=== PATIENT | male | born 1940 | race Caucasian/White ===

== ENCOUNTER → 2017-06-17 | Outpatient (CLI) | payer OTHER | LOC: FIMAGING 18:40 | PROVIDERS: ATTEND Internal Medicine | DX: M47.892 Other spondylosis, cervical region (principal); M50.30 Other cervical disc degeneration, unspecified cervical region; M12.88 Other specific arthropathies, not elsewhere classified, other specified site ==

== ENCOUNTER 2018-01-06 08:27 | Emergency (ER) | payer OTHER ==
--- NOTE | 2018-01-06 08:39 | CPEKG ---
Heart Rate: 69 RR Interval: 870 P-R Interval: 176 QRSD Interval: 94 QT Interval: 404 QTC Interval: 433 P Arapaho: 61 QRS [place]rapaho: 12 T Wave A[place]aho: 40 EKG Severity - NORMAL ECG - EKG Impression: SINUS RHYTHM Electronically Signed By: Jaspreet Fernandez 06-Jan-2018 08:51:16
--- NOTE | 2018-01-06 08:43 | EDPHY ---
H & P Stated Complaint: Chest pain Time Seen by Provider: 01/06/18 08:41 HPI/ROS: CHIEF COMPLAINT: Chest pain HISTORY OF PRESENT ILLNESS: The patient presents to the ED after he developed an episode of left-sided chest pain while eating breakfast today at 8 o'clock. The patient reports his pain is more last subsided. He reports he has had these symptoms sporadically on a q 2 month basis. Today the pain was slightly worse. The patient denies any pleuritic chest pain. He denies asymmetric calf pain or swelling. The patient reports he exercises frequently without chest pain or shortness of breath. The patient denies any symptoms of acid reflux. The patient does have a history of CABG in 1998. He believes his last stress test has been within the past 1-2 years and was normal. REVIEW OF SYSTEMS: A comprehensive 10 point review of systems is otherwise negative aside from elements mentioned in the history of present illness. Source: Patient Exam Limitations: No limitations - Personal History Current Tetanus/Diphtheria Vaccine: Unsure Current Tetanus Diphtheria and Acellular Pertussis (TDAP): Unsure - Medical/Surgical History Hx Asthma: No Hx Chronic Respiratory Disease: No Hx Diabetes: No Hx Cardiac Disease: Yes Hx Renal Disease: No Hx Cirrhosis: No Hx Alcoholism: No Hx HIV/AIDS: No Hx Splenectomy or Spleen Trauma: No Other PMH: CABG, - Social History Smoking Status: Never smoked - Physical Exam Exam: General Appearance: Alert, no distress Eyes: Pupils equal and round no pallor or injection ENT, Mouth: Mucous membranes moist Respiratory: There are no retractions, lungs are clear to auscultation Cardiovascular: Regular rate and rhythm Gastrointestinal: Abdomen is soft and nontender, no masses, bowel sounds normal Neurological: 5/5 strength all 4 extremities Skin: Warm and dry, no rashes, specifically no evidence of zoster Musculoskeletal: Neck is supple nontender Extremities: symmetrical, full range of motion, no clinical evidence of DVT Constitutional: Initial Vital Signs Temperature (C) 36.5 C 01/06/18 08:31 Heart Rate 73 01/06/18 08:31 Respiratory Rate 16 01/06/18 08:31 Blood Pressure 144/73 H 01/06/18 08:31 O2 Sat (%) 97 01/06/18 08:31 O2 Delivery Mode Room Air Allergies/Adverse Reactions: No Known Allergies Allergy (Unverified 01/06/18 08:31) Medical Decision Making - Diagnostics EKG Interpretation: EKG: Complete interpretation has been separately recorded in the [facility] archive. Summary impression: Sinus rhythm, rate 69, ST segment elevation or depression. Imaging Results: Imaging Impressions Chest X-Ray 01/06/18 08:49 Impression: Prior CABG; otherwise negative chest.. ED Course/Re-evaluation: The patient presents to the ED after an episode of sporadic intermittent atypical nonexertional chest pain. The patient's initial EKG demonstrates no ischemic changes. His initial troponin is normal. His heart score is 4 based upon prior history of atherosclerotic disease and his age. The patient has had 3-troponins in the emergency department. He has atypical nonexertional chest pain and I do feel would be reasonable candidate for close follow-up with Cardiology and consideration of a treadmill stress test or nuclear stress test in the next 2-3 days. I discussed the case with Dr. Manzano from Cardiology who concurs. The patient will contact [facility] today to schedule a follow-up visit. The patient does understand that we cannot fully exclude the presence of any progressive coronary artery disease and he needs to return to the ED immediately for any severe chest pain or shortness of breath. Differential Diagnosis: Differential diagnosis considered acute coronary syndrome, esophageal spasm, myocardial infarction, arrhythmia - Data Points Laboratory Results: Laboratory Results 01/06/18 08:42 01/06/18 08:42 01/06/18 01/06/18 01/06/18 11:01 08:59 08:46 WBC RBC Hgb Hct MCV MCH MCHC RDW Plt Count MPV Neut % (Auto) Lymph % (Auto) Winkler % (Auto) Eos % (Auto) Baso % (Auto) Nucleat RBC Rel Count Absolute Neuts (auto) Absolute Lymphs (auto) Absolute Monos (auto) Absolute Eos (auto) Absolute Basos (auto) Absolute Nucleated RBC Immature Gran % Immature Gran # Sodium Potassium Chloride Carbon Dioxide Anion Gap BUN Creatinine Estimated GFR Glucose Calcium POC Troponin I 0.00 ng/mL ng/mL 0.00 ng/mL ng/mL 0.00 ng/mL ng/mL (0.00-0.08) (0.00-0.08) (0.00-0.08) 01/06/18 01/06/18 08:42 08:42 WBC 7.83 10^3/uL 10^3/uL (3.80-9.50) RBC 5.53 10^6/uL 10^6/uL (4.40-6.38) Hgb 16.2 g/dL g/dL (13.7-17.5) Hct 47.9 % % (40.0-51.0) MCV 86.6 fL fL (81.5-99.8) MCH 29.3 pg pg (27.9-34.1) MCHC 33.8 g/dL g/dL (32.4-36.7) RDW 12.7 % % (11.5-15.2) Plt Count 202 10^3/uL 10^3/uL (150-400) MPV 10.8 fL fL (8.7-11.7) Neut % (Auto) 65.7 % % (39.3-74.2) Lymph % (Auto) 21.1 % % (15.0-45.0) Winkler % (Auto) 9.1 % % (4.5-13.0) Eos % (Auto) 3.1 % % (0.6-7.6) Baso % (Auto) 0.6 % % (0.3-1.7) Nucleat RBC Rel Count 0.0 % % (0.0-0.2) Absolute Neuts (auto) 5.15 10^3/uL 10^3/uL (1.70-6.50) Absolute Lymphs (auto) 1.65 10^3/uL 10^3/uL (1.00-3.00) Absolute Monos (auto) 0.71 10^3/uL 10^3/uL (0.30-0.80) Absolute Eos (auto) 0.24 10^3/uL 10^3/uL (0.03-0.40) Absolute Basos (auto) 0.05 10^3/uL 10^3/uL (0.02-0.10) Absolute Nucleated RBC 0.00 10^3/uL 10^3/uL (0-0.01) Immature Gran % 0.4 % % (0.0-1.1) Immature Gran # 0.03 10^3/uL 10^3/uL (0.00-0.10) Sodium 139 mEq/L mEq/L (135-145) Potassium 4.5 mEq/L mEq/L (3.3-5.0) Chloride 104 mEq/L mEq/L (97-110) Carbon Dioxide 28 mEq/l mEq/l (22-31) Anion Gap 7 mEq/L L mEq/L (8-16) BUN 33 mg/dL H mg/dL (7-23) Creatinine 1.6 mg/dL H mg/dL (0.7-1.3) Estimated GFR 42 Glucose 133 mg/dL H mg/dL (70-100) Calcium 9.2 mg/dL mg/dL (8.5-10.4) POC Troponin I Point of Care Test Results: Chemistry 01/06/18 01/06/18 01/06/18 11:01 08:59 08:46 POC Troponin I 0.00 ng/mL ng/mL 0.00 ng/mL ng/mL 0.00 ng/mL ng/mL (0.00-0.08) (0.00-0.08) (0.00-0.08) Departure - Departure Disposition: Home, Routine, Self-Care Clinical Impression: Chest pain Condition: Good Instructions: Chest Pain (ED) Additional Instructions: 1. Based upon the testing done in the Emergency Department today we see no evidence of a heart attack. 2. We are unable to fully exclude coronary artery disease based upon the testing available in the Emergency Department. 3. For this reason, we would like you to be seen by cardiology for consideration of additional testing within the next 3 days. 4. Please contact the [facility] inspector you have been referred to schedule this appointment as soon as possible. Their offices are typically open from 8:30am- 5pm M-F. 5. Please return to the Emergency Department immediately for any recurrent chest pain, difficulty breathing or other concerns. Referrals: Dustin Moore MD [Primary Care Provider] - As per Instructions Fernie Maria MD [Medical Doctor] - As per Instructions
[2018-01-06 08:55] LABS: PLATELET COUNT 202 10^3/uL (150-400)
[2018-01-06 11:42] VITALS: BP 122/75
== END 2018-01-06 11:40 | disposition home or self-care (01) ==
LOC: SUPCPDRO 08:27
DX: R07.9 Chest pain, unspecified (principal)
CPT/HCPCS: 84484-PO

== ENCOUNTER → 2018-03-11 | Outpatient (CLI) | payer OTHER | LOC: BHFA 09:15 | PROVIDERS: ATTEND Internal Medicine Cardiovascular Disease | DX: R07.9 Chest pain, unspecified (principal) ==